=== PATIENT | female | born 1960 | race African-American/Black ===

== ENCOUNTER 2019-08-21 00:24 | Emergency (ER) | payer OTHER ==
[~2019-08-21] VITALS: Ht 165.1 cm; Wt 55.0 kg
[2019-08-21] MEDS ORDERED: ONDANSETRON HCL 4MG/2ML INJ IV STA (02:41)
[2019-08-21] MEDS ORDERED: SODIUM CHLORIDE 0.9% 1,000 ML IV ONE (02:41)
[2019-08-21] MEDS ORDERED: MECLIZINE 12.5MG TABLET PO ONE (02:45)
[2019-08-21 03:06] LABS: BASOPHILS % 0.4 % (0.0-2.0); EOSINOPHILS % 1.9 % (0.0-5.0); HEMOGLOBIN. 14.4 g/dL (12.0-16.0); LYMPHOCYTES % 33.4 % (20.0-50.0); MEAN CORPUSCULAR HEMOGLOBIN 34.4 pg (28.0-32.0); MEAN CORPUSCULAR VOLUME 100.4 fL (81.0-99.0); MEAN PLATELET VOLUME 8.5 fl (7.4-10.4); MONOCYTES % 5.4 % (2.0-8.0); NEUTROPHILS % 58.9 % (40.0-76.0); PLATELET 232 x1000/uL (130-400); RED BLOOD CELL COUNT 4.18 mill/uL (4.2-5.4); RED CELL DISTRIBUTION WIDTH 12.9 % (11.6-14.6)
[2019-08-21 03:07] LABS: CHLORIDE 109 mEq/L (98-107)
[2019-08-21 03:31] LABS: ETHANOL BLOOD 393 mg/dL
[2019-08-21 08:07] VITALS: BP 130/77
== END 2019-08-21 08:09 | disposition home or self-care (01) ==
LOC: EDUNIT# 00:24 → ER 00:24
DX: F10.129 Alcohol abuse with intoxication, unspecified (principal); Y90.8 Blood alcohol level of 240 mg/100 ml or more
CPT/HCPCS: 36415; 80053; 80320; 85025; 93005; 96361; 96374; 99284; J2405; J7030; J8597; G0480